=== PATIENT | female | born 1970 | race Caucasian/White ===

== ENCOUNTER 2019-07-25 05:15 | Inpatient (IN) | payer BC ==
[2019-07-20 12:08] LABS: BASOPHILS # (AUTO) 0.1 X10'3 (0-0.2); EOSINOPHILS # (AUTO) 0.1 X10'3 (0-0.9); EOSINOPHILS % (AUTO) 1.2 % (0-6); LYMPHOCYTES % (AUTO) 28.7 % (21-51); MEAN CORPUSCULAR HEMOGLOBIN 23.8 PG (27.0-31.0); MEAN CORPUSCULAR HGB CONC 31.5 g/dL (33.0-36.5); MEAN CORPUSCULAR VOLUME 75.5 FL (78-98); MEAN PLATELET VOLUME 7.1 FL (7.4-10.4); MONOCYTES # (AUTO) 0.6 X10'3 (0-0.9); MONOCYTES % (AUTO) 9.2 % (2-12); NEUTROPHILS # (AUTO) 4.1 X10'3 (1.8-7.7); NEUTROPHILS % (AUTO) 59.9 % (42-75); PRE OP HEMATOCRIT 35.5 % (35.0-45.0); PRE OP HEMOGLOBIN 11.2 g/dL (12.0-16.0); PRE OP PLATELET COUNT 416 X10'3 (140-440); RED CELL DISTRIBUTION WIDTH 26.6 % (11.5-14.5)
[2019-07-20 12:19] LABS: PRE OP PROTIME 9.8 SECONDS (9.0-12.0)
[2019-07-20 12:37] LABS: ALBUMIN 3.7 G/DL (3.4-5.0); ALBUMIN/GLOBULIN RATIO 0.9 (1.1-1.5); ALKALINE PHOSPHATASE 69 IU/L (46-116); BLOOD UREA NITROGEN 9 MG/DL (7-18); BUN/CREATININE RATIO 11.3 (6.6-38.0); CALCIUM 8.8 MG/DL (8.5-10.1); CHLORIDE 106 MMOL/L (99-107); PRE OP ALT 21 U/L (30-65); PRE OP ANION GAP 9 (8-16); PRE OP AST 21 U/L (10-37); PRE OP BILIRUB, TOTAL 1.1 MG/DL (0.0-1.0); PRE OP GLUCOSE 88 MG/DL (70-104); PRE OP SODIUM 139 MMOL/L (135-145); TOTAL CARBON DIOXIDE 23.7 MMOL/L (24-32); TOTAL PROTEIN 7.7 G/DL (6.4-8.2); eGFR 77 ML/MIN
[2019-07-20 13:14] LABS: ANISOCYTOSIS 3+; ELLIPTOCYTES FEW; HYPOCHROMASIA 1+; MICROCYTOSIS 1+; PLATELET ESTIMATE NORMAL; POLYCHROMASIA FEW; SCHISTOCYTES FEW; TARGET CELLS FEW
[~2019-07-25] VITALS: Ht 175.3 cm; Wt 104.8 kg
[2019-07-25] VITALS (18 sets, daily range): BP systolic 99–124; BP diastolic 52–78
[~2019-07-25 05:15] MED LIST: CITA20TA28 PO; MELO15TA13 PO; ringers solution, lacted 1,000 ML IV SCH
[2019-07-25] MEDS ORDERED: tranexamic acid inj. 1,000 MG in normal saline 100 ML IV ONE (05:30)
[2019-07-25] MEDS ORDERED: ceFAZolin 2gm in dextrose, iso 50 ML IV ONE (05:30)
[2019-07-25] MEDS ORDERED: vancomycin 1,500 MG in NS 300ml IV soln IV ONE (05:30)
[2019-07-25] MEDS ORDERED: famotidine 20mg tablet PO ONE (05:30)
[2019-07-25] MEDS ORDERED: LIDOcaine 1% (10mg/ml) 2ml vial ONE (05:51)
[2019-07-25] MEDS ORDERED: ceFAZolin 1000mg inj ONE (06:54)
[2019-07-25] MEDS ORDERED: tetracaine 1% (10mg/ml) pres. free inj. ONE (07:15)
[2019-07-25] MEDS ORDERED: fentaNYL/PF 50MCG/1 ML 2ML syringe ONE ×2 (07:18→08:39)
[2019-07-25] MEDS ORDERED: MIDAZolam 5mg/5ml vial ONE (07:18)
[2019-07-25] MEDS ORDERED: LIDOcaine 1%/PF 5ML 10 MG/ML VIAL ONE (08:36)
[2019-07-25] MEDS ORDERED: ROPIVAcaine 0.5% (5mg/ml) 30ml vial ONE (08:36)
[2019-07-25] MEDS ORDERED: diphenhydrAMINE 50 mg/ml inj ONE (08:36)
[2019-07-25] MEDS ORDERED: propofol inj 40 ML IV ONE (08:36)
[2019-07-25] MEDS ORDERED: ringers solution, lacted 1,000 ML IV SCH (08:42)
[2019-07-25] MEDS ORDERED: ROPIVAcaine 0.2%/PF PUMP/bolus 550 ML ADDCANAL SCH (08:42)
[2019-07-25] MEDS ORDERED: meperidine/PF 25mg/ml syringe IV PRN ×3 (08:45)
[2019-07-25] MEDS ORDERED: morphine 2 MG/ML inj. syringe IV PRN (08:45)
[2019-07-25] MEDS ORDERED: ROPIVAcaine 0.2% (10 MG/5 ML) BOLUS INJECTION ADDCANAL PRN (08:45)
[2019-07-25] MEDS ORDERED: ondansetron/PF 4mg/2ml inj IV PRN ×2 (08:45→10:30)
[2019-07-25] MEDS ORDERED: proCHLORperazine 10 MG/2 ml inj IV PRN (08:45)
[2019-07-25] MEDS ORDERED: morphine 4 MG/ML inj SYRINge IV PRN (08:45)
[2019-07-25] MEDS ORDERED: propofol inj 20 ML IV ONE (09:51)
--- NOTE | 2019-07-25 10:25 | NUR ---
Received from OR via BED , accompanied by Anesthesiologist DR LOPEZ and report given by Anesthesiolgist. PATIENT WAKING UP, DENIES PAIN, V/S WNL, NEUROVASCULAR CHECKS INTACT, 18G PIV LUE , SUZANNA DRESSING TO RIGHT KNEE CDI W/ COLD POWDER PACK AND ON QUE PUMP AT 4ML/HR , SENSATION T-10.
[2019-07-25] MEDS ORDERED: bisacodyl 10mg suppository rectal RC PRN (10:30)
[2019-07-25] MEDS ORDERED: HYDROmorphone 1 mg/ml syringe IV PRN (10:30)
[2019-07-25] MEDS ORDERED: diphenhydrAMINE 25mg capsule PO PRN ×2 (10:30)
[2019-07-25] MEDS ORDERED: magnesium hydroxide 30ml (MOM) UD suspension PO PRN (10:30)
[2019-07-25] MEDS ORDERED: acetaminophen 325mg tablet PO PRN (10:30)
--- NOTE | 2019-07-25 11:25 | NUR ---
PATIENT WAKING UP, DENIES PAIN, V/S WNL, NEUROVASCULAR CHECKS INTACT, 18G PIV LUE , SUZANNA DRESSING TO RIGHT KNEE CDI W/ COLD POWDER PACK AND ON QUE PUMP AT 4ML/HR , SENSATION T-12. F/C DRAINING CLEAR YELLOW URINE. PATIENT TAKEN TO WITH ALL BELONGINGS AND HOOKED UP TO MONITORS IN ROOM AND REPORT GIVEN TO PROGRAM EVALUATOR WHO HAS TAKEN OVER PATIENT CARE.
[2019-07-25] MEDS: HYDROcodone/acetaminophen 10/325mg tab PO PRN ×5 (15:30→23:11)
[2019-07-25] MEDS: potassium Cl 20mEq in NS 1,000 ML IV SCH ×2 (17:03→20:27)
[2019-07-25] MEDS: ceFAZolin 1GM/D5W- ADD-VANTAGE 50 ML IV SCH ×2 (17:07→23:35)
[2019-07-25] MEDS: aspirin 81mg tab.chew PO SCH (17:51)
--- NOTE | 2019-07-25 18:28 | NUR ---
Problems reprioritized. Patient report given, questions answered & plan of care reviewed with TONI COHEN.
[2019-07-25] MEDS ORDERED: vancomycin/NS 1 GM ADD-VANTAGE 250 ML IV SCH (20:00)
[2019-07-25] MEDS: sennosides 8.6mg tablet PO SCH (21:00)
[2019-07-26] MEDS: HYDROcodone/acetaminophen 10/325mg tab PO PRN (03:30)
[2019-07-26] MEDS: potassium Cl 20mEq in NS 1,000 ML IV SCH ×2 (03:31→16:27)
--- NOTE | 2019-07-26 06:24 | NUR ---
Patient in room [facility]TH[facility] 4015. I have received report from May and had the opportunity to ask questions and assume patient care.
[2019-07-26 06:47] LABS: BASOPHILS % (AUTO) 0.4 % (0-1); EOSINOPHILS % (AUTO) 0 % (0-6); HEMATOCRIT 27.7 % (35.0-45.0); HEMOGLOBIN 8.9 g/dl (12.0-16.0); LYMPHOCYTES # (AUTO) 1.1 X10'3 (1.1-4.8); LYMPHOCYTES % (AUTO) 11.6 % (21-51); MEAN CORPUSCULAR HEMOGLOBIN 24.2 PG (27.0-31.0); MEAN CORPUSCULAR HGB CONC 32.1 g/dL (33.0-36.5); MEAN CORPUSCULAR VOLUME 75.3 FL (78-98); MEAN PLATELET VOLUME 7.5 FL (7.4-10.4); MONOCYTES # (AUTO) 1.2 X10'3 (0-0.9); MONOCYTES % (AUTO) 13.3 % (2-12); NEUTROPHILS # (AUTO) 6.8 X10'3 (1.8-7.7); NEUTROPHILS % (AUTO) 74.7 % (42-75); PLATELET COUNT 273 X10'3 (140-440); RED BLOOD COUNT 3.68 X10'6 (4.20-5.60); WHITE BLOOD COUNT 9.1 X10'3 (4.5-11.0)
[2019-07-26 07:13] LABS: ALANINE AMINOTRANSFERASE 38 U/L (12-78); ALBUMIN 2.8 G/DL (3.4-5.0); ALBUMIN/GLOBULIN RATIO 0.8 (1.1-1.5); ALKALINE PHOSPHATASE 54 IU/L (46-116); ANION GAP 7 (8-16); ASPARTATE AMINO TRANSFERASE 49 U/L (10-37); BILIRUBIN,TOTAL 1.4 MG/DL (0.1-1.0); BLOOD UREA NITROGEN 5 MG/DL (7-18); BUN/CREATININE RATIO 8.1 (6.6-38.0); CALCIUM 8.1 MG/DL (8.5-10.1); CHLORIDE 105 MMOL/L (99-107); CREATININE 0.62 MG/DL (0.40-0.90); GLUCOSE 116 MG/DL (70-104); POTASSIUM 3.9 MMOL/L (3.5-5.1); SODIUM 137 MMOL/L (135-145); TOTAL CARBON DIOXIDE 24.6 MMOL/L (24-32); TOTAL PROTEIN 6.1 G/DL (6.4-8.2); eGFR > 90 ML/MIN
[2019-07-26] MEDS: aspirin 81mg tab.chew PO SCH ×2 (07:36→17:55)
[2019-07-26] MEDS: citalopram 20mg tablet PO SCH (07:37)
[2019-07-26 08:25] LABS: ANISOCYTOSIS 3+; ELLIPTOCYTES FEW; HYPOCHROMASIA 1+; MICROCYTOSIS 1+; PLATELET ESTIMATE NORMAL; POLYCHROMASIA 1+; SCHISTOCYTES FEW
[2019-07-26] MEDS ORDERED: oxyCODONE/APAP 10/325mg tablet PO PRN (09:55)
[2019-07-26 10:00] VITALS: BP 113/69
[2019-07-26] MEDS: oxyCODONE/APAP 10/325mg tablet PO PRN ×4 (10:13→22:17)
--- NOTE | 2019-07-26 10:39 | NUR ---
Joint Replacement Consult: Pt PO 100% first regular meal meeting needs so far post-op. Pt seen by ZHEN for written/verbal high protein ed w/ RD contact information provided. Pt declines additional proteins at this time. Addendum: 07/26/19 at [address] Amended: Links added.
[2019-07-26 18:00] VITALS: BP 131/81
--- NOTE | 2019-07-26 18:05 | NUR ---
Patient in room [facility]TH[facility] 4015. I have received report from TONI Perez and had the opportunity to ask questions and assume patient care.
[2019-07-26 22:00] VITALS: BP 148/94
[2019-07-26] MEDS: sennosides 8.6mg tablet PO SCH (22:16)
[2019-07-27] MEDS: oxyCODONE/APAP 10/325mg tablet PO PRN ×4 (02:15→15:04)
[2019-07-27 06:00] VITALS: BP 122/74
[2019-07-27 06:17] LABS: HEMATOCRIT 28.2 % (35.0-45.0); MEAN CORPUSCULAR HGB CONC 32.1 g/dL (33.0-36.5); MEAN PLATELET VOLUME 7.6 FL (7.4-10.4); RED CELL DISTRIBUTION WIDTH 26.4 % (11.5-14.5)
--- NOTE | 2019-07-27 06:18 | NUR ---
Problems reprioritized. Patient report given, questions answered & plan of care reviewed with TONI Marie.
[2019-07-27 06:19] LABS: MEAN CORPUSCULAR HEMOGLOBIN 24.3 PG (27.0-31.0); MEAN CORPUSCULAR VOLUME 75.6 FL (78-98); PLATELET COUNT 314 X10'3 (140-440); RED BLOOD COUNT 3.73 X10'6 (4.20-5.60); WHITE BLOOD COUNT 10.8 X10'3 (4.5-11.0)
--- NOTE | 2019-07-27 06:30 | NUR ---
Patient in room [facility]TH[facility] 4015. I have received report from Cally MUÑOZ and had the opportunity to ask questions and assume patient care.
[2019-07-27 06:49] LABS: ALANINE AMINOTRANSFERASE 41 U/L (12-78); ALBUMIN 2.8 G/DL (3.4-5.0); ALBUMIN/GLOBULIN RATIO 0.7 (1.1-1.5); ALKALINE PHOSPHATASE 71 IU/L (46-116); ANION GAP 10 (8-16); ASPARTATE AMINO TRANSFERASE 27 U/L (10-37); BILIRUBIN,TOTAL 1.2 MG/DL (0.1-1.0); BLOOD UREA NITROGEN 4 MG/DL (7-18); BUN/CREATININE RATIO 5.6 (6.6-38.0); CALCIUM 8.8 MG/DL (8.5-10.1); CHLORIDE 103 MMOL/L (99-107); CREATININE 0.72 MG/DL (0.40-0.90); GLUCOSE 120 MG/DL (70-104); POTASSIUM 3.6 MMOL/L (3.5-5.1); SODIUM 137 MMOL/L (135-145); TOTAL CARBON DIOXIDE 23.9 MMOL/L (24-32); TOTAL PROTEIN 6.7 G/DL (6.4-8.2); eGFR 87 ML/MIN
[2019-07-27] MEDS: aspirin 81mg tab.chew PO SCH (08:05)
[2019-07-27] MEDS: citalopram 20mg tablet PO SCH (08:06)
[2019-07-27 09:33] LABS: PLATELET ESTIMATE NORMAL; TOTAL CELLS COUNTED 100
[2019-07-27 09:34] LABS: ANISOCYTOSIS 3+; MICROCYTOSIS 1+; TOXIC VACUOLATION 1+
[2019-07-27 09:35] LABS: POLYCHROMASIA FEW
[2019-07-27 09:36] LABS: ELLIPTOCYTES FEW; HYPOCHROMASIA 2+; POIKILOCYTOSIS FEW
[2019-07-27 09:38] LABS: SMUDGE CELLS 1+
[2019-07-27 10:00] VITALS: BP 117/75
[2019-07-27] MEDS: potassium Cl 20mEq in NS 1,000 ML IV SCH (15:04)
== END 2019-07-27 17:40 | disposition home or self-care (01) | DRG 470 ==
LOC: UNDOADMIN 05:15 → PAS IN 05:15 → EDSTATUS 07:30 → PAS IN 10:27 → ORTHO 4S 11:45 → PAS IN 11:45
PROVIDERS: ADMIT Orthopaedic Surgery; ATTEND Orthopaedic Surgery
PROC: 3E0T3BZ Introduction of Anesthetic Agent into Peripheral Nerves and Plexi, Percutaneous Approach (ICD-10-PCS; 2019-07-25)
PROC: 0SRC0J9 Replacement of Right Knee Joint with Synthetic Substitute, Cemented, Open Approach (ICD-10-PCS; principal; 2019-07-25 07:24)
DX: M17.11 Unilateral primary osteoarthritis, right knee (principal); Z79.899 Other long term (current) drug therapy
CPT/HCPCS: Z7506; Z7508; 36415; 80053; 82948; 85025; 85610; 85730; 86885; 86900; 86901; 86920; 87081; 93005; 97110; 97116; 97161; 97530; A6455; A7000; C1713; C1758; C1776; G0378; J0690; J1170; J1200; J2001; J2250; J2704; J2795; J3010; J3370; J3480; J7040; J7120; Q0163